=== PATIENT | female | born 1975 | race Caucasian/White ===

== ENCOUNTER 2016-09-12 16:38 | Emergency (ER) | payer OTHER ==
[~2016-09-12 16:38] MED LIST: CITRATE OF MAG296 ML PO; DURAGESIC TOP; DURAGESIC12 MCG TOP; LORTAB 7.5-5001 TAB PO; LYRICA PO; MORPHINE IR PO; OMEPRAZOLE40 MG; PHENERGAN PO; TIZANIDINE HCL2 MG PO
== END 2016-09-12 18:50 | disposition short-term general hospital (02) ==
LOC: CED 16:38
DX: N81.4 Uterovaginal prolapse, unspecified (principal); F17.210 Nicotine dependence, cigarettes, uncomplicated; Z90.89 Acquired absence of other organs; Z98.890 Other specified postprocedural states
CPT/HCPCS: 99284; 99285; J2270; J2405